=== PATIENT | female | born 1940 | race Caucasian/White ===

== ENCOUNTER → 2017-05-17 | Outpatient (CLI) | payer OTHER ==
--- NOTE | 2017-05-17 13:16 | DIAGNOSTIC IMAGING REPORT ---
LEFT KNEE MRI HISTORY: LEFT KNEE PAIN COMPARISON STUDY: Left knee 10/09/2016. TECHNIQUE: Multiplanar multisequence MRI of the left knee was performed according to standard department protocol without the use of contrast. FINDINGS: Menisci: Complex tear within the body and posterior horn of the medial meniscus. The lateral meniscus is intact. Ligaments: The ACL, PCL, MCL are intact. There is abnormal signal within the proximal LCL consistent with a partial tear. Extensor mechanism: The quadriceps tendon and patellar ligament are intact. Articular cartilage and bone: 11 x 11 mm area of full-thickness cartilage loss within the medial femoral condyle. There is extensive marrow edema within the medial femoral condyle. Best seen on sagittal images 6 there is a small 5 mm curvilinear focus of hypointense signal within the central weightbearing portion of the medial femoral condyle. This favors a nondisplaced subchondral microfracture. There is subchondral cystic change within the medial tibial plateau. Mild cartilage thinning within the medial tibial plateau. Tricompartmental osteophytes. There is near complete full-thickness cartilage loss within the patellofemoral joint with subchondral sclerosis and [id number] articulation. Joint effusion: Small. Soft tissues: Mild thickening and increased signal within the popliteus tendon consistent with a tendinopathy. IMPRESSION: 1. Complex tear involving the body and posterior horn of the medial meniscus. 2. Tricompartmental osteoarthritis as described above with a focal area of full-thickness cartilage loss within the medial femoral condyle and near complete full-thickness cartilage loss at the patellofemoral joint. 3. Suspect a 5 mm nondisplaced subchondral microfracture at the medial femoral condyle. 4. Partial LCL tear. 5. Popliteus tendinopathy. 6. Small joint effusion. Electronically signed by: Grey Bruno M.D. 05/17/2017 1:15 PM Dictated Date/Time: 05/17/2017 12:58 PM
== END | disposition home or self-care (01) ==
LOC: C.MRI 09:50
PROVIDERS: ATTEND Physical Medicine & Rehabilitation Sports Medicine
DX: M17.12 Unilateral primary osteoarthritis, left knee (principal); S83.242A Other tear of medial meniscus, current injury, left knee, initial encounter; S72.435A Nondisplaced fracture of medial condyle of left femur, initial encounter for closed fracture; S83.422A Sprain of lateral collateral ligament of left knee, initial encounter; X58.XXXA Exposure to other specified factors, initial encounter; M76.892 Other specified enthesopathies of left lower limb, excluding foot; M25.462 Effusion, left knee

== ENCOUNTER → 2017-05-22 | Outpatient (CLI) | payer OTHER | END | disposition home or self-care (01) | LOC: C.RDSM 11:22 | PROVIDERS: ATTEND Physical Medicine & Rehabilitation Sports Medicine | DX: M17.12 Unilateral primary osteoarthritis, left knee (principal); M25.562 Pain in left knee ==

== ENCOUNTER → 2017-06-19 | Outpatient (CLI) | payer OTHER ==
--- NOTE | 2017-06-19 09:16 | DIAGNOSTIC IMAGING REPORT ---
RENAL ULTRASOUND CLINICAL HISTORY: HEMATURIA . COMPARISON STUDY: None. TECHNIQUE: Sonography of the kidneys and the urinary bladder was performed. FINDINGS: The right kidney measures 10.2 x 4.4 x 3.9 cm and the left measures 11.4 x 5.8 x 5.3 cm. There is no hydronephrosis. No shadowing calculi are identified. A 1.3 cm anechoic right renal lesion is consistent with a cyst. Note is made of a 2.6 x 1.7 x 2 cm echogenic lesion which likely arises from the lower pole of the right kidney. Slight dilatation of the right renal pelvis is noted. The left ureteral jet was visualized. The right ureteral jet was not identified. IMPRESSION: 1. 2.6 cm echogenic lesion which arises from the lower pole of the right kidney and favors an angiomyolipoma. Renal cell carcinoma is considered less likely but could appear similar. A hematuria protocol CT is recommended. 2. No hydronephrosis. Mild dilatation of the right renal pelvis favors an extrarenal pelvis. Electronically signed by: aNdir Christine M.D. 06/19/2017 9:15 AM Dictated Date/Time: 06/19/2017 9:11 AM
--- NOTE | 2017-07-06 12:33 | CODING QUERY NO DIAGNOSIS ---
: 06/19/17 TREATMENT RENDERED WITHOUT A DIAGNOSIS To promote full compliance with coding requirements relating to patient care, physician participation is requested in all cases of mine expert uncertainty. Please assist us with providing a diagnosis/symptom for the test(s) below: A diagnosis/symptom was not documented on your Order. A valid diagnosis/symptom is required to bill all insurances. Please remember that we are unable to code a diagnosis of rule out, probable, possible, questionable, or suspected. Tests that require a diagnosis: DOS: 06/19/17 * US RENAL RETROPERITONEAL DIAGNOSIS: Provider Signature: Date: Thank you Shalini Walker [employer] Information Management Once completed, please kindly fax back to [phone] For questions please call [phone]
== END | disposition home or self-care (01) ==
LOC: C.ULTR 08:33
PROVIDERS: ATTEND Family Medicine
DX: R31.29 Other microscopic hematuria (principal); N28.9 Disorder of kidney and ureter, unspecified

== ENCOUNTER → 2017-08-10 | Outpatient (CLI) | payer OTHER ==
--- NOTE | 2017-08-10 13:38 | MAMMOGRAPHY REPORT ---
BILATERAL DIGITAL SCREENING MAMMOGRAM WITH CAD: 08/10/2017 CLINICAL HISTORY: Routine screening. Patient has no complaints. TECHNIQUE: Current study was also evaluated with a Computer Aided Detection (CAD) system. Bilateral CC and MLO views were obtained. COMPARISON: Comparison is made to exams dated: 08/08/2016 mammogram, 08/05/2015 mammogram, 08/03/2014 m ammogram, 07/28/2013 mammogram, 07/19/2012 mammogram, and 07/11/2012 mammogram - [facility]. BREAST COMPOSITION: The tissue of both breasts is heterogeneously dense, which may obscure small mas ses. FINDINGS: No suspicious masses, calcifications, or areas of architectural distortion are noted in ei ther breast. There has been no significant interval change compared to prior exams. Scattered bilater al benign-appearing calcifications are not significantly changed. IMPRESSION: ACR BI-RADS CATEGORY 2: BENIGN There is no mammographic evidence of malignancy. A 1 year screening mammogram is recommended. The pa tient will receive written notification of the results. Approximately 10% of breast cancers are not detected with mammography. A negative mammographic report should not delay biopsy if a clinically suggestive mass is present. Meliza Herrera M.D. /:08/10/2017 12:33:13 Biometric Fingerprinting Technician: Marlena NUNEZR, M, [facility] letter sent: Normal 1/2 BI-RADS Code: ACR BI-RADS Category 2: Benign
== END | disposition home or self-care (01) ==
LOC: C.MAMM 08:32
PROVIDERS: ATTEND Family Medicine
DX: Z12.31 Encounter for screening mammogram for malignant neoplasm of breast (principal)

== ENCOUNTER → 2017-10-30 | Outpatient (CLI) | payer OTHER ==
[2017-10-30 13:55] LABS: BASO % 0.4 %; BASO ABS # 0.03 K/uL (0-0.2); EOS % 2.7 %; EOS ABS # 0.22 K/uL (0-0.5); HEMATOCRIT 42.3 % (37-47); HEMOGLOBIN 14.3 g/dL (12.0-16.0); IG# 0.02 K/uL (0.00-0.02); LYMPH % 30.6 %; LYMPH ABS # 2.45 K/uL (1.2-3.4); MEAN CELL VOLUME 83.6 fL (80-100); MEAN CORPUSCULAR HEMOGLOBIN 28.3 pg (25-34); MEAN CORPUSCULAR HGB CONC 33.8 g/dl (32-36); MEAN PLATELET VOLUME 9.9 fL (7.4-10.4); MONO % 11.6 %; MONO ABS # 0.93 K/uL (0.11-0.59); NEUT % 54.5 %; NEUT ABS # 4.36 K/uL (1.4-6.5); PLATELET COUNT 226 K/uL (130-400); RED CELL DISTRIBUTION WIDTH CV 13.8 % (11.5-14.5); RED CELL DISTRIBUTION WIDTH SD 41.6 fL (36.4-46.3); WHITE BLOOD COUNT 8.01 K/uL (4.8-10.8)
[2017-10-30 14:01] LABS: ALBUMIN 4.1 gm/dl (3.4-5.0); ALT/SGPT 33 U/L (12-78); BLOOD UREA NITROGEN 20 mg/dl (7-18); CALCIUM 9.8 mg/dl (8.5-10.1); CARBON DIOXIDE 27 mmol/L (21-32); CREATININE 0.94 mg/dl (0.60-1.20); GLUCOSE 94 mg/dl (70-99); POTASSIUM 4.5 mmol/L (3.5-5.1); SODIUM 140 mmol/L (136-145)
[2017-10-30 14:05] LABS: INR 0.9 (0.9-1.1); PTT PATIENT 23.3 SECONDS (21.0-31.0)
[2017-10-30 14:17] LABS: ALKALINE PHOSPHATASE 71 U/L (45-117); AST/SGOT 21 U/L (15-37); TOTAL PROTEIN 7.3 gm/dl (6.4-8.2)
== END | disposition home or self-care (01) ==
LOC: C.LABSPEC 13:13
PROVIDERS: ATTEND Family Medicine
DX: Z01.812 Encounter for preprocedural laboratory examination (principal)

== ENCOUNTER → 2017-10-31 | Outpatient (CLI) | payer OTHER ==
--- NOTE | 2017-10-31 13:12 | Exercise Stress Test Report ---
Exercise Stress Test Report Exercise Stress Test Report Date of Service: 10/31/2017 Exercise Stress Test Report Indication: Abnormal EKG Patient exercised for 8 minutes using a standard Chris protocol She achieved 89 percent of her maximal predicted heart rate and 10 Mets of activity Baseline EKG was normal sinus rhythm During exercise was development of an incomplete right bundle branch block but no significant ST or T-wave changes during exercise or recovery No symptoms reported during the test Normal heart rate and blood pressure response to exercise Vo treadmill score: 8 (low risk) Impression: Normal exercise stress test without evidence of inducible ischemia
== END | disposition home or self-care (01) ==
LOC: C.CPL 10:45
PROVIDERS: ATTEND Family Medicine
DX: R94.31 Abnormal electrocardiogram [ECG] [EKG] (principal)

== ENCOUNTER 2018-09-10 05:03 | Inpatient (IN) ==
--- NOTE | 2018-08-23 10:13 | PAT Medication Instructions ---
Medication Instructions Date of Service August 23, 2018 Home Medications Azelastine Hydrochloride 1 spray BID [place] 3 4 cap PO DAILY ascorbic acid (vitamin C) 500 mg PO DAILY atenolol 25 mg PO QAM coenzyme Q10 [CoQ-10] 100 mg PO DAILY cyclosporine [Restasis] 1 drp OPHTHALMIC (EYE) Q12H fexofenadine-pseudoephedrine [Kati-D 24 Hour] 1 tab PO DAILY losartan 100 mg PO QPM lutein 20 mg PO DAILY multivitamin [Multiple Vitamins] 1 tab PO WK simvastatin 20 mg PO PM Continue as directed multivitamin [Multiple Vitamins] 1 tab PO WK (HOLD IF YOU TAKE DAY OF SURGERY ) STOP taking 2 weeks before surgery lutein 20 mg PO DAILY coenzyme Q10 [CoQ-10] 100 mg PO DAILY [place] 3 4 cap PO DAILY DO NOT take the morning of surgery cyclosporine [Restasis] 1 drp OPHTHALMIC (EYE) Q12H fexofenadine-pseudoephedrine [Kati-D 24 Hour] 1 tab PO DAILY ascorbic acid (vitamin C) 500 mg PO DAILY Azelastine Hydrochloride 1 spray BID Take morning of surgery With a small sip of water, OTHERWISE NOTHING TO EAT OR DRINK AFTER MIDNIGHT: atenolol 25 mg PO QAM Take evening before surgery simvastatin 20 mg PO PM losartan 100 mg PO QPM cyclosporine [Restasis] 1 drp OPHTHALMIC (EYE) Q12H Azelastine Hydrochloride 1 spray BID Other Notes If you have any questions please call us at [phone] or [phone] or [phone] or [phone]
--- NOTE | 2018-08-23 10:42 | Anesthesiology Consultation ---
Date of Service August 23, 2018 Assessment & Plan (1) Encounter for pre-operative examination: Chart Review Chart Review: Acceptable Risk for Surgery and Patient seen in Pre Admission Testing Consults Requested medical (Dr. Webb (saw on 08/15/18)) Note received from PCP stating that patient is medically cleared for surgery, but is to stop ASA one week prior to surgery. Teaching & Discussion Pre-Anesthesia Teaching/Discussion Notes: Instructed NPO after midnight before surgery, except medications with 15 cc of water. Medication instructions provided according to the PAT guidelines. History Surgery Operation Date: 09/10/18 10:00 Proposed Procedures p Left Total Knee Arthroplasty - Daniel Anguiano MD Height/Weight Height: 5 ft 6 in Weight: 74.7 kg Allergies Allergy/AdvReac Type Severity Reaction Status Date / Time codeine AdvReac Unknown Nausea Verified 08/16/18 09:00 Medications Home Medications Medication Instructions Recorded Confirmed Last Taken Azelastine Hydrochloride 1 spray BID 08/16/18 08/16/18 Unknown [place] 3 4 cap PO HS 08/16/18 08/23/18 Unknown ascorbic acid (vitamin C) [Vitamin 500 mg PO DAILY 08/16/18 08/16/18 Unknown C] atenolol 25 mg PO QAM 08/16/18 08/16/18 Unknown coenzyme Q10 [CoQ-10] 100 mg PO DAILY 08/16/18 08/16/18 Unknown cyclosporine [Restasis] 1 drp OPHTHALMIC (EYE) Q12H 08/16/18 08/16/18 Unknown fexofenadine-pseudoephedrine 1 tab PO DAILY 08/16/18 08/16/18 Unknown [Kati-D 24 Hour] losartan 100 mg PO QPM 08/16/18 08/16/18 Unknown lutein 20 mg PO DAILY 08/16/18 08/16/18 Unknown multivitamin [Multiple Vitamins] 1 tab PO WK 08/16/18 08/16/18 Unknown simvastatin 20 mg PO PM 08/16/18 08/16/18 Unknown Past Medical History Medical History Acid reflux OCCASSIONAL - DIETARY CONTROLLED HTN (hypertension) History of migraine Hyperlipidemia Menieres disease Sleep apnea BI PAP Past Family History Family History Grandmother Family history of breast cancer Father , at age 86 Osteoarthritis CHF (congestive heart failure) Mother Heart disease Past Surgical History Surgical History History of bilateral cataract extraction History of bunionectomy X2 History of colonoscopy History of hysterectomy History of surgical procedure on mouth TOOTH IMPLANT History of tonsillectomy Status post trigger finger release RIGHT HAND Past Anesthesia History No Hx of Anesthesia Complications and No Family Hx of Anesthesia Complications History of PONV No Motion Sickness Screening History of Motion Sickness: Yes (In childhood) Social History Smoking Status: Never smoker Do You Dip or Chew Tobacco: No Hx Alcohol Use: Yes Alcohol type: wine alcohol intake frequency: 0-2 drinks per day Hx Substance Use: No substance use type: does not use Exercise / Class Metabolic Activity II 4-5 Yardwork/Stairs/Walk up hill (Walks dog 3x per day. Yoga 2x per week. industrial trainer weekly. Able to climb FOS. Denies CP or SOB. ) Review of Systems Patient denies chest pain, shortness of breath, dyspnea on exertion, reflux ( controlled by diet), cough, wheezing, palpitations. +joint pain (knees, hands, back) Physical Exam Vital Signs BP: 131/79 P: 55 R: 20 T: 98.2 SPO2: 93% on RA (has on dark red gel nailpolish on) ENMT Thyromental Distance: < 3.5 Finger Breadths (3) Mallampati Class: I Neck normal visual inspection and trachea midline; neck extension not limited Respiratory normal respiratory effort Auscultation: lungs clear to auscultation bilaterally Cardiovascular Rate/Rhythm: regular rate and regular rhythm Heart Sounds: no murmur Vessels: no carotid bruit Neurologic moves all extremities Psychiatric Orientation: alert and oriented x 3 Testing Electrocardiogram Date: 08/15/18 Findings: + NSR @ (63) Slight inferior repolarization disturbance, consider ischemia, LV overload, or aspecific change Chest X-Ray Date: 08/23/18 Findings: + NAD FINDINGS: Cardiac mediastinal and hilar silhouettes are unremarkable. No pneumothorax, pleural effusion, focal airspace consolidation or overt pulmonary edema. Minimal subsegmental atelectasis/scarring of the lateral left lung base. Degenerative changes of the shoulders and spine. IMPRESSION: No acute process. Echocardiogram Date: 08/14/11 EF: 60-65% LV Function: normal RWMA: + none Other Findings: + diastolic dysfunction (Class I) Valvular Disease: + no significant valvular disease and + MR (Trace MR) Mild TR. Stress Test Date: 10/31/17 Type: exercise Patient exercised for 8 minutes and achieved 89 percent of her MPHR and 10 METS of activity. Baseline EKG was normal sinus rhythm. During exercise was development of an incomplete RBBB but no significant ST or T-wave changes during exercise or recovery. DONE DUE TO ABNORMAL EKG Laboratory Results 08/23/18 11:02 08/23/18 11:02 Blood Type A Positive 08/23/18 11:02 Antibody Screen NEGATIVE 08/23/18 11:02 PT 10.0 Seconds (9.0-12.0) 08/23/18 11:02 INR 1.0 (0.9-1.1) 08/23/18 11:02 APTT 23.3 Seconds (21.0-31.0) 08/23/18 11:02
--- NOTE | 2018-08-23 11:32 | XRay Report ---
XR chest Pre-admission PA/Lat HISTORY: 77 years-old Female pat preoperative exam. No acute chest complaints. COMPARISON: CT abdomen and pelvis 06/28/2017 TECHNIQUE: PA and lateral views of the chest FINDINGS: Cardiac mediastinal and hilar silhouettes are unremarkable. No pneumothorax, pleural effusion, focal airspace consolidation or overt pulmonary edema. Minimal subsegmental atelectasis/scarring of the lat eral left lung base. Degenerative changes of the shoulders and spine. IMPRESSION: No acute process. The above report was generated using voice recognition software. It may contain grammatical, syntax o r spelling errors. Electronically signed by: Harjit Brandon M.D. 08/23/2018 11:31 AM
[2018-08-23 12:39] LABS: Basophils # (auto) 0.01 K/uL (0-0.2); Basophils % (auto) 0.1 %; Hematocrit (blood only) 38.9 % (37-47); Hemoglobin 12.8 g/dL (12.0-16.0); Immature Granulocytes # (auto) 0.01 K/uL (0.00-0.02); Immature Granulocytes % (auto) 0.1 %; Lymphocytes % (auto) 31.1 %; Mean Corpuscular Hgb Conc 32.9 g/dL (32-36); Mean Corpuscular Volume 83.3 fL (80-100); Mean Platelet Volume 9.6 fL (7.4-10.4); Monocytes # (auto) 0.58 K/uL (0.11-0.59); Monocytes % (auto) 8.6 %; Neutrophils # (auto) 3.85 K/uL (1.4-6.5); Neutrophils % (auto) 57.1 %; Platelet Count 206 K/uL (130-400); RDW Coefficient of Variation 14.1 % (11.5-14.5); RDW Standard Deviation 42.5 fL (36.4-46.3); Red Blood Count 4.67 M/uL (4.2-5.4); White Blood Count 6.75 K/uL (4.8-10.8)
[2018-08-23 12:55] LABS: BUN Creatinine Ratio 21.1 (10-20); Calcium 9.2 mg/dl (8.5-10.1); Creatinine Clr Calc Pharmacy 50.7 ml/min; Est GFR (African American) 64.6; Est GFR (Non-African American) 55.7; Potassium 4.2 mmol/L (3.5-5.1)
[2018-08-23 13:02] LABS: Partial Thromboplastin Ratio 0.9; Partial Thromboplastin Time 23.3 Seconds (21.0-31.0)
--- NOTE | 2018-08-23 15:47 | History & Physical Report ---
Date of Service August 23, 2018 Assessment & Plan (1) Degenerative joint disease of knee: Patient is scheduled for an elective left total knee arthroplasty by Dr. Anguiano on September 10, 2018. Risks and complications of surgery were explained to the patient and include but are not limited to infection, pain, bleeding, scarring, nerve and blood vessel damage, wound problems, weakness, stiffness, incomplete relief of symptoms, hardware failure, loosening, wear, blood clots, embolisms, heart attack, stroke and . All questions were answered and informed consent was obtained by Dr. Anguiano. She will have preadmission testing later today in which we will obtain a preoperative CBC, PTT , PT, BMP, chest x-ray and medical clearance from her family physician Dr. Webb. We will use Lovenox 30 mg twice a day 2 weeks after surgery for DVT prophylaxis. She would like to go home after surgery with potentially in home health or outpatient physical therapy. She was given a prescription for a walker to use after surgery. She will follow up with Dr. Anguiano is scheduled approximate 2 weeks after surgery. All questions were answered and she knows to call with any further problems, questions or concerns. Present on Admission?: Yes History of Present Illness Chief Complaint: Left knee pain Primary Care Provider: Fanny Webb Patient is a pleasant 77-year-old female who is here today for preoperative history and physical. She is scheduled to have an elective left total knee arthroplasty done by Dr. Anguiano at the [facility] on September 10, 2018. She complains of left knee pain that has progressively worsened over the last few months. She states that most of her knee pain is on the inside aspect of the knee. Her pain is increased with activity and weightbearing. She does have decreasing activities of daily living due to pain in her left knee. She has increased pain with range of motion as well as limited motion due to pain in her left knee. She states that she is unable to bend it quite as far as she used to be able to do. She denies any joint effusions currently. Aggravating activities include walking, going up and down steps. She also occasionally gets rest and night pain. She has not needed to use an assistive device but does have to take occasional breaks to rest. Prior treatments include nonsteroidal anti-inflammatory medications, corticosteroid injections and viscosupplementation. She really is not getting any long lasting relief from any of the conservative things that she is trying. Radiology images show tricompartmental arthritis of her left knee. Due to her failure of conservative treatment, she wishes to proceed with elective left total knee arthroplasty. Allergies Allergy/AdvReac Type Severity Reaction Status Date / Time codeine AdvReac Unknown Nausea Verified 08/16/18 09:00 Home Medications Home Medications Medication Instructions Recorded Confirmed Type Azelastine Hydrochloride 1 spray BID 08/16/18 08/16/18 History [place] 3 4 cap PO HS 08/16/18 08/23/18 History ascorbic acid (vitamin C) [Vitamin 500 mg PO DAILY 08/16/18 08/16/18 History C] atenolol 25 mg PO QAM 08/16/18 08/16/18 History coenzyme Q10 [CoQ-10] 100 mg PO DAILY 08/16/18 08/16/18 History cyclosporine [Restasis] 1 drp OPHTHALMIC (EYE) Q12H 08/16/18 08/16/18 History fexofenadine-pseudoephedrine 1 tab PO DAILY 08/16/18 08/16/18 History [Kati-D 24 Hour] losartan 100 mg PO QPM 08/16/18 08/16/18 History lutein 20 mg PO DAILY 08/16/18 08/16/18 History multivitamin [Multiple Vitamins] 1 tab PO WK 08/16/18 08/16/18 History simvastatin 20 mg PO PM 08/16/18 08/16/18 History Past Med/Surg History Medical History Acid reflux OCCASSIONAL - DIETARY CONTROLLED HTN (hypertension) History of migraine Hyperlipidemia Menieres disease Sleep apnea BI PAP Surgical History History of bilateral cataract extraction History of bunionectomy X2 History of colonoscopy History of hysterectomy History of surgical procedure on mouth TOOTH IMPLANT History of tonsillectomy Status post trigger finger release RIGHT HAND Family History Grandmother Family history of breast cancer Father , at age 86 Osteoarthritis CHF (congestive heart failure) Mother Heart disease Social History Current Living Situation: Spouse Other Information That Helps Us Care for You: No Feels Safe at Home: Yes Smoking Status: Never smoker Do You Dip or Chew Tobacco: No Hx Alcohol Use: Yes Alcohol type: wine Alcohol Intake Frequency: 0-2 drinks per day Hx Substance Use: No Beliefs That Will Affect Care: None Preferred Language: Slovak Communication Ability: Effective Adapted Physical Education Aide Required: No Review of Systems Constitutional: no fever, no chills, no sweats, no fatigue, no weakness, no weight loss and no weight gain Eyes: no eye pain and no itchy eyes Ear, Nose, Mouth, Throat: + hearing loss; no ear pain, no ear discharge, no ear trauma and no tinnitus hearing aids Respiratory: no cough, no chest congestion, no dyspnea on exertion and no pain on inspiration Sleep apnea - Bi-Pap Cardiovascular: no chest pain, no chest pain at rest, no chest pain with activity, no dyspnea, no dyspnea at rest, no palpitations, no lightheadedness, no syncope, no edema and no calf pain Gastrointestinal: no abdominal pain, no belching, no heartburn, no nausea, no vomiting, no pain with swallowing, no change in stools, no constipation and no diarrhea/loose stools Genitourinary (Female): no dysuria, no difficulty urinating, no urinary urgency and no urinary incontinence Musculoskeletal: + joint pain, + stiffness and + limited range of motion (left knee); no back pain, no radicular pain, no swelling, no muscle weakness, no muscle atrophy and no body aches Gets "adjusted" by her chiropractor biweekly Integumentary: no rash, no lesions, no non-healing lesions, no skin ulcer, no erythema, no dry skin and no pruritus Neurologic: + gait abnormality; no falls, no tingling, no numbness, no paresthesia, no dizziness, no confusion and no memory loss Endocrine: no fatigue Hematologic / Lymphatic: no easy bleeding, no easy bruising and no coagulopathy Physical Exam 2 Physical Exam: Height 5 feet 6 inches, weight 155 pounds Constitutional: WD/WN, vitals as above Eyes: PERRL, conjunctivae normal, anicteric sclerae ENMT: external ear and nose normal, oropharynx normal Throat: uvula midline Good dentition Neck: trachea midline, no thyromegaly no neck crepitus Thyroid: normal thyroid Respiratory: normal respiratory effort, lungs clear to auscultation Auscultation: no crackles, no rales, no rhonchi and no wheezes Cardiovascular: RRR, no murmur, no edema Heart Sounds: normal S1 and normal S2 Palpation: normal PMI Vessels: normal peripheral pulses Extremities: normal capillary refill; no calf tenderness and no pedal edema Chest (Breasts): Chest: normal inspection of chest Gastrointestinal (Abdomen): normal bowel sounds, soft, nontender, no hepatosplenomegaly Inspection/Auscultation: abdomen not distended Percussion/Palpation: abdomen soft Musculoskeletal: Left knee: Grade 0/3/120. You joint line tenderness without deformity. 1+ dorsalis pedis. No effusion. Strength 5/5 with otherwise normal distal vascular function. Cruciates and collaterals are intact. Painless movement of the left hip. No significant atrophy of her muscles. She ambulance with a slight antalgic with no assistive device. Skin: no rashes, warm and dry Neurologic: deep tendon reflexes 2+ bilaterally Psychiatric: A+Ox3, euthymic affect Speech: normal rate/rhythm/volume of speech Results & Data Laboratory Results 08/23/18 08/23/18 08/23/18 Range/Units 11:02 11:02 11:02 WBC (4.8-10.8) K/uL RBC (4.2-5.4) M/uL Hgb (12.0-16.0) g/dL Hct (37-47) % MCV (80-100) fL MCH (25-34) pg MCHC (32-36) g/dL RDW Std Deviation (36.4-46.3) fL RDW Coeff of Osvaldo (11.5-14.5) % Plt Count (130-400) K/uL MPV (7.4-10.4) fL Immature Gran % (Auto) % Neut % (Auto) % Lymph % (Auto) % [place] % (Auto) % Eos % (Auto) % Baso % (Auto) % Immature Gran # (Auto) (0.00-0.02) K/uL Neut # (Auto) (1.4-6.5) K/uL Lymph # (Auto) (1.2-3.4) K/uL [place] # (Auto) (0.11-0.59) K/uL Eos # (Auto) (0-0.5) K/uL Baso # (Auto) (0-0.2) K/uL PT 10.0 (9.0-12.0) Seconds INR 1.0 (0.9-1.1) APTT 23.3 (21.0-31.0) Seconds PTT Ratio 0.9 Sodium 141 (136-145) mmol/L Potassium 4.2 (3.5-5.1) mmol/L Chloride 111 H (98-107) mmol/L Carbon Dioxide 22 (21-32) mmol/L Anion Gap 8.0 (3-11) BUN 21 H (7-18) mg/dl Creatinine 0.99 (0.6-1.2) mg/dl Est Cr Clr Drug Dosing 50.7 ml/min Est GFR ( Amer) 64.6 Est GFR (Non-Af Amer) 55.7 BUN/Creatinine Ratio 21.1 H (10-20) Glucose 107 H (70-99) mg/dl Calcium 9.2 (8.5-10.1) mg/dl Blood Type A Positive Antibody Screen NEGATIVE 08/23/18 Range/Units 11:02 WBC 6.75 (4.8-10.8) K/uL RBC 4.67 (4.2-5.4) M/uL Hgb 12.8 (12.0-16.0) g/dL Hct 38.9 (37-47) % MCV 83.3 (80-100) fL MCH 27.4 (25-34) pg MCHC 32.9 (32-36) g/dL RDW Std Deviation 42.5 (36.4-46.3) fL RDW Coeff of [place] 14.1 (11.5-14.5) % Plt Count 206 (130-400) K/uL MPV 9.6 (7.4-10.4) fL Immature Gran % (Auto) 0.1 % Neut % (Auto) 57.1 % Lymph % (Auto) 31.1 % [place] % (Auto) 8.6 % Eos % (Auto) 3.0 % Baso % (Auto) 0.1 % Immature Gran # (Auto) 0.01 (0.00-0.02) K/uL Neut # (Auto) 3.85 (1.4-6.5) K/uL Lymph # (Auto) 2.10 (1.2-3.4) K/uL [place] # (Auto) 0.58 (0.11-0.59) K/uL Eos # (Auto) 0.20 (0-0.5) K/uL Baso # (Auto) 0.01 (0-0.2) K/uL PT (9.0-12.0) Seconds INR (0.9-1.1) APTT (21.0-31.0) Seconds PTT Ratio Sodium (136-145) mmol/L Potassium (3.5-5.1) mmol/L Chloride (98-107) mmol/L Carbon Dioxide (21-32) mmol/L Anion Gap (3-11) BUN (7-18) mg/dl Creatinine (0.6-1.2) mg/dl Est Cr Clr Drug Dosing ml/min Est GFR ( Amer) Est GFR (Non-Af Amer) BUN/Creatinine Ratio (10-20) Glucose (70-99) mg/dl Calcium (8.5-10.1) mg/dl Blood Type Antibody Screen Diagnostic Findings X-rays of bilateral knees:5 use of both knees obtained and reviewed demonstrate progression of medial compartment osteophyte arthritis of the left knee to near [id number]. There is bilateral [id number] patellofemoral disease and some mild medial compartment change on the right knee. No fracture, bone or soft tissue lesions. XR chest Pre-admission PA/Lat HISTORY: 77 years-old Female pat preoperative exam. No acute chest complaints. COMPARISON: CT abdomen and pelvis 06/28/2017 TECHNIQUE: PA and lateral views of the chest FINDINGS: Cardiac mediastinal and hilar silhouettes are unremarkable. No pneumothorax, pleural effusion, focal airspace consolidation or overt pulmonary edema. Minimal subsegmental atelectasis/scarring of the lateral left lung base. Degenerative changes of the shoulders and spine. IMPRESSION: No acute process.
[2018-09-10] MEDS ORDERED: TRANEXAMIC ACID 1,000 MG **IV Pre-op IV SCH (06:00)
[2018-09-10] MEDS ORDERED: CEFAZOLIN 1000MG 1,000 MG/7.5 ML SYR IV SCH (06:00)
[2018-09-10] MEDS ORDERED: GABAPENTIN 300 MG PO SCH (06:00)
[2018-09-10] MEDS ORDERED: LR 15ML/HR IV SCH (06:00)
[2018-09-10] MEDS ORDERED: ROPIVACAINE 0.5% HCL/PF 150 MG, BUPIVACAINE 0.5% MPF 30 ML, EPINEPHrine 0.15 MG, Ketoro... INFIL SCH (06:00)
[2018-09-10] MEDS ORDERED: TRAMADOL HCL 50 MG TABLET PO SCH (06:00)
[2018-09-10] MEDS ORDERED: FAMOTIDINE 20 MG TAB PO SCH (06:00)
[2018-09-10] MEDS ORDERED: OXYCODONE HCL 10 MG TABCR (OXYCONTIN) PO SCH (06:00)
[2018-09-10] MEDS ORDERED: cloNIDine HCL 0.1 MG/24 HR TRANSDERM SYS TD SCH (06:00)
[2018-09-10] MEDS ORDERED: dexAMETHasone 4 MG TAB PO SCH (06:00)
[2018-09-10] MEDS ORDERED: METOCLOPRAMIDE HCL 10 MG TABLET PO SCH (06:00)
[2018-09-10] MEDS ORDERED: ACETAMINOPHEN 500 MG TAB PO SCH (06:00)
[2018-09-10] MEDS ORDERED: CeleBREX 200 MG CAP PO SCH (06:00)
[2018-09-10] MEDS: LR 500ML BOLUS, THEN 15ML/HR IV SCH ×3 (06:11→12:18)
[2018-09-10] MEDS ORDERED: BUPIVACAINE 0.5 % 5 MG/1 ML PF 10ML VIAL ONE (06:22)
[2018-09-10] MEDS ORDERED: ROPIVACAINE 0.5% 5 MG/ML 30 ML VIAL ONE (06:23)
[2018-09-10] MEDS ORDERED: TRANEXAMIC ACID 1,000 MG **IV Intra-op IV SCH (06:30)
[2018-09-10] MEDS ORDERED: ORTHO JOINT ANESTHETIC ONE (06:39)
[2018-09-10] MEDS ORDERED: SODIUM CHLORIDE 0.9% PF 50 ML VIAL ONE (06:39)
[2018-09-10] MEDS ORDERED: POVIDONE-IODINE OP SOLN 30 ML BTL ONE (06:39)
[2018-09-10] MEDS ORDERED: BACITRACIN INJ 50,000 UNIT VIAL ONE (06:39)
[2018-09-10] MEDS ORDERED: PROPOFOL IV EMULSION 10 MG/ML 20 ML VIAL IV ONE ×4 (06:41→09:28)
[2018-09-10] MEDS ORDERED: MIDAZOLAM HCL 1 MG/ML 2ML VIAL ONE ×3 (06:41→08:56)
[2018-09-10] MEDS ORDERED: LIDOCAINE HCL 2% 2 ML VIAL/AMP(20MG/ML) INFIL ONE (06:41)
[2018-09-10] MEDS ORDERED: fentaNYL citrate 100 MCG/2 ML VIAL ONE (06:41)
--- NOTE | 2018-09-10 06:45 | History & Physical Bridge Note ---
Date of Service September 10, 2018 History & Physical Bridge Note I have examined the patient, reviewed the History & Physical and in the interval since the performance of the History & Physical I have noted the following changes of clinical significance: no changes noted
[2018-09-10] MEDS: CHECK CLONIDINE PATCH PLACEMENT SCH ×3 (06:51→16:14)
[2018-09-10] MEDS ORDERED: ATROPINE SULFATE 0.1 MG/ML 10ML SYR IV PRN (07:13)
[2018-09-10] MEDS ORDERED: HYDROmorphone INJ 2 MG/ML SYR/VIAL IV PRN (07:13)
[2018-09-10] MEDS ORDERED: ePHEDrine sulfate 50 MG/ML AMP IV PRN (07:13)
[2018-09-10] MEDS ORDERED: CEFAZOLIN 250 MG/ML 1 GM VIAL ONE (07:19)
[2018-09-10] MEDS ORDERED: ePHEDrine sulfate 50 MG/ML SYR ONE (07:58)
--- NOTE | 2018-09-10 10:21 | Operative Report ---
Post Operative Report Pre & Post Diagnosis Operation Date: 09/10/18 07:00 Pre-Op Diagnosis: Left Knee Tricompartmental Arthritis Post-Op Diagnosis: Left Knee Tricompartmental Arthritis Procedure Operation Date: 09/10/18 07:00 Actual Procedures p Left Total Knee Arthroplasty(Left) - Daniel Anguiano MD Surgeon Daniel Anguiano MD Staff Scientist flaco Olivo Estimated Blood Loss 10 Findings Consistent with Post-Op Diagnosis Specimens Resected bone and soft tissue Anesthesia Type MAC Spinal Regional Disposition Accompanied Patient To Recovery: No Disposition: Recovery Room Indications The patient is a 77-year-old female with end-stage osteoarthritis left knee medial and patellofemoral compartments. This is been refractory to nonsurgical methods of management after discussion her treatment options risks and benefits she elected to proceed with surgery Description of Procedure Informed consent obtained. Patient identified. She identified the operative site as the left knee. I marked with my initials. A preop surgical timeout performed. Preop dose of IV antibiotics given. TXA was given preoperatively and upon deflation of the tourniquet. Examination revealed range of motion 0/3/ 125 with no significant effusion or deformity. The cruciates and collateral ligaments were intact. She was positioned supine on the OR table with a bump under the left hip and a tourniquet on the left thigh pad. A padded post was used under the calf. Leg was prepped and draped in the usual sterile fashion. DVT prophylaxis intraoperatively with foot pumps. Postoperatively early mobility and Lovenox. The leg was exsanguinated with the Esmarch. Tourniquet inflated to 275 mmHg. A midline incision was utilized followed by medial parapatellar arthrotomy the patellofemoral joint was markedly arthritic with significant lateral wear of the patella. There were osteophytes along the patella and lateral femur which were removed. The medial meniscus was partially deficient. There were bone-on- bone changes 1-1/2 cm to 2 cm in diameter in the medial compartment both sides. The cruciate ligaments were resected and the menisci were resected. Lateral compartment looked relatively normal. A medial release was performed. The retropatellar fat pad was resected. The synovial reflection in the lateral gutter was released. The patella was slightly difficult to reg and I went ahead and put a pin into the tubercle to prevent avulsion. Soft tissue on the anterior aspect the distal femur was resected. The tibia was then subluxated and a energy efficiency engineer hole was made just in front of the tibial spines and between them. The intramedullary alignment teena was inserted and the guide was aligned to resect 10 off of the lateral side which corresponded to 4 mm medially. The patellar tendon was in the way and was protected. The tibial tubercle appeared to be fairly lateralized. It was also noted that there was a fair amount of internal femoral rotation which was noted. The extra medullary alignment teena was utilized. The block was not optimally aligned and I went ahead and repeated the entire process realigning more lateral over the tibial tubercle. The slope was parallel and the axis was bisecting the ankle joint in line with the second ray. 0 degree block was utilized and the cut was made. I later after assessing the extension gap and finding it to be tight came back and resected 2 more millimeters off of the tibia. A energy efficiency engineer hole was made into the distal femur and the intramedullary alignment teena was inserted. The guide was set at 12 degrees thickness cut 7 degree valgus left knee according to preoperative templating. This cut was made. The the gap was 8 and therefore went back and resected 2 more off the tibia which should give us a symmetric 10 mm extension gap. The epicondylar axis was marked out. The sizing guide was applied and sized to a 2.5. The anterior down cutting block was applied. The right the the flexion gap was rectangular. Collateral ligaments were protected and the cuts were made. The box cut was made after applying the guide and lateralizing it. Tibia sized to a 2.5. Posterior osteophytes were removed particularly lateral. The flexion gap was a symmetric 10. The tibia was prepared with the keel and punch and trial components were inserted. There is a slight bit springiness in extension. Trace MCL and LCL laxity in mid position knee was stable in full extension and flexion was easy with good patellar tracking. The patella was measured to be 18 mm in thickness with significant lateral wear. The guide was set to preserve 13 mm of bone and the cut was made. Most of the medial bone was removed with only a skim cut lateral. I used a 35mm patella which was 8 mm thick aligned the paddle appropriately with the patella being distal lysed and medialized. The alignment was assessed with the knee in slight flexion and the patella returned to its anatomic position. The lug holes were drilled. The residual patellar thickness was 12 mm. At the conclusion the operation there was a the composite patellar thickness was 19 mm. The canals were plugged. Orth O joint mix injected in the back of the knee. Copious pulsatile lavage was performed and the bone surfaces were dried. 2 bags of Simplex P cement were mixed and while in a doughy state the femur tibia and patella were cemented in place the knee was held in full extension with a clamp on the patella until the cement hardened. The tourniquet was then let down after 125 minutes of inflation. There was minimal bleeding and meticulous hemostasis was obtained with electrocautery. Anita assisted flexion with the extensor mechanism closed was 125 degrees. The knee was easily fully straight with neutral alignment trace MCL and trace to 1+ LCL laxity in mid position. Knee stable in full extension. The final polyethylene for the tibia was inserted. The back of the knee was inspected for cement and removed as encountered. Irrigation and Betadine lavage were performed. Extensor mechanism was closed with interrupted #2 FiberWire above the equator of the patella and running and interrupted #1 Vicryl below. The skin was closed in layers with 0 and 2-0 Vicryl and ghulam on the skin. A soft sterile dressing was applied along with a full-length Reginald wrap and knee immobilizer. There was a small globule of cement that was underneath the patellar clamp superiorly. This was below the shoulder of the patellar component. Medially it overhang down to the soft tissues and I removed it but laterally there was about 1 cm that was affixed into the bone. I gently tried to remove it but could not and therefore elected to preserve it. It was only about 2 mm in thickness and about a centimeter long below the shoulder of the patella superior and lateral. She was awakened from anesthesia without difficulty and taken to the recovery room in stable condition. There were no complications. Blood loss is estimated to be 10 cc. Counts were correct specimens included bone and soft tissue. She will be rehabilitated according to total knee protocol. She can weight- bear as tolerated and range of motion as tolerated. Components inserted with a J[employer]J PFC Sigma rotating platform knee size 10 rotating platform polyethylene spacer 2.5 posterior stabilized left femur and a 2.5 mobile bearing keeled tibial tray. A 35 mm 3 peg oval dome patella. The rotation of the tibial component was set. The tibial component was lateralized to the articular margin margin as well as the femoral component. I attest to the content of the Intraoperative Record and any orders documented therein. Any exceptions are noted below.
--- NOTE | 2018-09-10 10:52 | Operative Report ---
Post Operative Report Pre & Post Diagnosis Operation Date: 09/10/18 07:00 Pre-Op Diagnosis: Left Knee Tricompartmental Arthritis Post-Op Diagnosis: Left Knee Tricompartmental Arthritis Procedure Operation Date: 09/10/18 07:00 Actual Procedures p Left Total Knee Arthroplasty(Left) - Daniel Anguiano MD Surgeon Daniel Anguiano M.D. Mandrel Maker Erica Carrillo PA-C, flaco Dominguez APPLICATIONS SUPPORT ANALYST Student Estimated Blood Loss 10 Findings Consistent with Post-Op Diagnosis Specimens bone and soft tissue Anesthesia Type Spinal MAC Complications none Disposition Accompanied Patient To Recovery: No Disposition: Recovery Room Indications Patient is a 78-year-old female who was seen and evaluated as an outpatient for progressively worsening left knee pain. She is failed conservative treatment which is consisted of nonsteroidal anti-inflammatory medications, corticosteroid injections and Visco supplementation. She has pain on a daily basis which affects her activities of daily living and quality of life. She uses a cane occasionally to assist with ambulation. She has elected to proceed with a left total knee arthroplasty. Risks and complications were discussed and informed consent was obtained. Description of Procedure Patient was taken to the operating room, given spinal anesthesia and a peripheral nerve block. Timeout was performed. She was given 2 g of IV Ancef for surgical prophylaxis. She was prepped and draped in routine sterile fashion. I was present during the entire case, please see Dr. Anguiano's operative report for further detail. Patient was awakened and transferred to the recovery room in stable condition.
--- NOTE | 2018-09-10 11:07 | XRay Report ---
XR knee LT 2V routine CLINICAL HISTORY: Degenerative arthritis. Postop study. COMPARISON: 07/02/2018 DISCUSSION: There are postsurgical changes of a total left knee arthroplasty and patellar resurfacing . The femoral and tibial components appear well seated. There are no acute fractures. There is air pr esent within the soft tissues consistent with recent surgery. There are overlying skin ghulam. IMPRESSION: Postsurgical changes of a total left knee arthroplasty. Electronically signed by: Srinivasa Landrum M.D. 09/10/2018 11:05 AM
--- NOTE | 2018-09-10 11:22 | Anesthesiology Progress Note ---
Date of Service September 10, 2018 Anesthesia Post Procedure Vital Signs Vital Signs: Temp Pulse Pulse Resp BP Pulse Ox 09/10/18 11:05 80 20 150/94 H 95 09/10/18 10:55 64 14 99 09/10/18 10:45 60 18 147/82 H 98 09/10/18 10:36 36.4 C L 63 11 L 141/70 H 99 09/10/18 06:08 36.8 C 57 L 20 155/79 H 97 Notes Mental Status: alert / awake / arousable Patient Amnestic to Procedure: Yes Nausea / Vomiting: adequately controlled Pain: adequately controlled Airway Patency, RR, SpO2: stable & adequate BP & HR: stable & adequate Hydration State: stable & adequate Anesthetic Complications: no major complications apparent and Pt Satisfied with anesthetic care
[2018-09-10] MEDS ORDERED: ACETAMINOPHEN 325 MG TAB PO PRN (11:25)
[2018-09-10] MEDS ORDERED: METOCLOPRAMIDE HCL INJ 5 MG/ML 2 ML VIAL IV PRN (11:25)
[2018-09-10] MEDS ORDERED: KETOROLAC TROMETHAMINE 15 MG/ML VIAL IV PRN (11:25)
[2018-09-10] MEDS ORDERED: DiphenhydrAMINE HCL 50 MG/ML VIAL IV PRN (11:25)
[2018-09-10] MEDS ORDERED: NON-FORMULARY MEDICATION (Cyclosporine [Restasis] 1 DROPS) OP SCH (11:25)
[2018-09-10] MEDS ORDERED: ONDANSETRON INJ 2 MG/ML 2 ML VIAL IV PRN (11:25)
[2018-09-10] MEDS ORDERED: MAGNESIUM HYDROXIDE SUSP 30 ML UDC PO PRN (11:25)
[2018-09-10] MEDS ORDERED: MoRPHine SULFATE 2 MG/ML CARP IV PRN (11:25)
[2018-09-10] MEDS ORDERED: OXYCODONE HCL IR 5 MG TAB (IMMEDIATE RELEASE) PO PRN (11:25)
[2018-09-10] MEDS: SODIUM CHLORIDE 0.9% 1000ML 1,000 ML IV SCH ×2 (14:10→23:20)
--- NOTE | 2018-09-10 14:52 | Progress Note ---
DATE: 09/10/2018 SUBJECTIVE: She is sleeping, but easily arousable and responds appropriately to questions. She is getting some feeling back in her legs and has no pain. She is slightly nauseated. OBJECTIVE: VITAL SIGNS: Blood pressure approximately 150/80, pulse 55. She is afebrile. MUSCULOSKELETAL: Her dressing is clean and dry. Dorsalis pedis is 1+. Foot warm. She has diminished sensation in both feet, but has more feeling in the right foot than the left. She can lift her right leg, but cannot lift her left leg. She can faintly flex and extend the toes on the left foot, but cannot plantar flex or dorsiflex her ankle. Radiographs show good positioning of the components without evidence of complication. There is some rotation on both films particularly the AP view. IMPRESSION: Left total knee arthroplasty. PLAN: We talked about pain management. Surgical findings discussed. Plan is for routine post-surgical management. Diannanox will begin tonight. We will monitor her blood pressure. Routine postop antibiotics and PT.
[2018-09-10] MEDS: ACETAMINOPHEN 500 MG TAB PO SCH ×2 (15:40→20:45)
[2018-09-10] MEDS: CEFAZOLIN 1000MG 1,000 MG/7.5 ML SYR IV SCH ×2 (16:10→23:20)
[2018-09-10] MEDS ORDERED: TRANEXAMIC ACID 1,000 MG in 0.9 % SODIUM CHLORIDE 100 ML IV SCH (17:00)
[2018-09-10] MEDS: SIMVASTATIN 20 MG TAB PO SCH (20:44)
[2018-09-10] MEDS: DOCUSATE SODIUM 100 MG CAP PO SCH (20:44)
[2018-09-10] MEDS: AZELASTINE 137 MCG NAE SCH (20:45)
[2018-09-10] MEDS: LOSARTAN POTASSIUM 50 MG TAB PO SCH (20:45)
[2018-09-10] MEDS: CYCLOSPORINE OP SCH (20:45)
[2018-09-10] MEDS: ENOXAPARIN INJ 30 MG/0.3 ML SYR SQ SCH (20:48)
[2018-09-10] MEDS ORDERED: AZELASTINE HYDROCHLORIDE INTNAS SCH (21:00)
[2018-09-10] MEDS ORDERED: OMEGA PO SCH (21:00)
[2018-09-11] MEDS: CHECK CLONIDINE PATCH PLACEMENT SCH ×4 (01:17→23:30)
[2018-09-11] MEDS: ACETAMINOPHEN 500 MG TAB PO SCH ×3 (05:49→21:10)
[2018-09-11 06:37] LABS: Hematocrit (blood only) 29.2 % (37-47); Hemoglobin 9.6 g/dL (12.0-16.0); Mean Corpuscular Hgb Conc 32.9 g/dL (32-36); Mean Corpuscular Volume 83.9 fL (80-100); Platelet Count 147 K/uL (130-400); RDW Coefficient of Variation 14.4 % (11.5-14.5); RDW Standard Deviation 44.1 fL (36.4-46.3); Red Blood Count 3.48 M/uL (4.2-5.4); White Blood Count 10.95 K/uL (4.8-10.8)
[2018-09-11 07:05] LABS: BUN Creatinine Ratio 23.3 (10-20); Calcium 8.2 mg/dl (8.5-10.1); Creatinine Clr Calc Pharmacy 52.1 ml/min; Est GFR (African American) 67.4; Est GFR (Non-African American) 58.2; Potassium 4.3 mmol/L (3.5-5.1)
[2018-09-11] MEDS ORDERED: FEXOFENADINE PSEUDOEPHEDRINE PO SCH (09:00)
[2018-09-11] MEDS ORDERED: NON-FORMULARY MEDICATION (Lutein [Lutein] 20 MG) PO SCH (09:00)
[2018-09-11] MEDS ORDERED: MULTIVITAMIN TAB PO SCH (09:00)
[2018-09-11] MEDS ORDERED: NON-FORMULARY MEDICATION (Coenzyme Q10 [Coq-10] 100 MG) PO SCH (09:00)
[2018-09-11] MEDS: PANTOprazole 40 MG TAB PO SCH (09:22)
[2018-09-11] MEDS: ATENOLOL 25 MG TABLET PO SCH (09:22)
[2018-09-11] MEDS: DOCUSATE SODIUM 100 MG CAP PO SCH ×2 (09:22→21:10)
[2018-09-11] MEDS: AZELASTINE 137 MCG NAE SCH ×2 (09:23→21:11)
[2018-09-11] MEDS: CYCLOSPORINE OP SCH ×2 (09:23→21:11)
[2018-09-11] MEDS: TRAMADOL HCL 50 MG TABLET PO PRN ×3 (09:24→21:18)
[2018-09-11] MEDS: ENOXAPARIN INJ 30 MG/0.3 ML SYR SQ SCH ×2 (09:25→21:10)
--- NOTE | 2018-09-11 09:25 | Orthopedic Progress Note ---
Date of Service September 11, 2018 Assessment & Plan (1) Degenerative joint disease of knee: Postop day 1 left total knee arthroplasty PT/OT today. Weight-bear as tolerated left lower extremity. Knee immobilizer until good quad control. She can probably DC that today. Lovenox for DVT prophylaxis. We will not do a dressing change today. Will change dressings tomorrow either with home health if she is discharged or in the hospital. Continue regular diet as ordered. Continue p.o. pain medication as ordered. She does have a walker for use at home. Encourage bedside exercises. Will discuss findings with Dr. Anguiano. I will check in later this afternoon to see if she feels comfortable with being discharged home at that time. Discharge to home with in-home nursing and PT. Case management setting up. Discharge to home either later today or tomorrow morning. Present on Admission?: Yes (2) Acute blood loss anemia: Asymptomatic. Monitor H&H. No need for transfusion at this time. Present on Admission?: No Subjective Patient doing well. Less nauseated today. Tolerating a regular diet but does not have much of an appetite. No significant pain of her left knee. She has been able to control her pain with oral Tylenol. She is going to take some tramadol this morning prior to PT. She has been out of bed in her room but has not had formal physical therapy yet. She has been ambulating with a walker. Denies any lightheadedness or dizziness, chest pain or shortness of breath. Physical Exam 2 Vital Signs (Past 24 Hours): Last Vital Signs Temp 36.5 C 09/11/18 07:03 Pulse 62 09/11/18 07:03 Resp 18 09/11/18 07:03 BP 116/70 09/11/18 07:03 Pulse Ox 98 09/11/18 07:03 Physical Exam: Exam of her left lower extremity reveals a dressing is clean, dry and intact. She is able to independently straight leg raise. Distal neurovascular function is normal. Dorsalis pedis pulses 1+. Distal sensation normal. Brisk capillary refill. No calf tenderness with palpation. Dorsiflexion strength 5/5. Results & Data Laboratory Results 09/11/18 09/11/18 Range/Units 06:28 06:28 WBC 10.95 H (4.8-10.8) K/uL RBC 3.48 L (4.2-5.4) M/uL Hgb 9.6 L (12.0-16.0) g/dL Hct 29.2 L (37-47) % MCV 83.9 (80-100) fL MCH 27.6 (25-34) pg MCHC 32.9 (32-36) g/dL RDW Std Deviation 44.1 (36.4-46.3) fL RDW Coeff of Osvaldo 14.4 (11.5-14.5) % Plt Count 147 (130-400) K/uL MPV 9.0 (7.4-10.4) fL Sodium 140 (136-145) mmol/L Potassium 4.3 (3.5-5.1) mmol/L Chloride 112 H (98-107) mmol/L Carbon Dioxide 23 (21-32) mmol/L Anion Gap 5.0 (3-11) BUN 22 H (7-18) mg/dl Creatinine 0.95 (0.6-1.2) mg/dl Est Cr Clr Drug Dosing 52.1 ml/min Est GFR ( Amer) 67.4 Est GFR (Non-Af Amer) 58.2 BUN/Creatinine Ratio 23.3 H (10-20) Glucose 104 H (70-99) mg/dl Calcium 8.2 L (8.5-10.1) mg/dl
[2018-09-11] MEDS ORDERED: dexAMETHasone 4 MG TAB PO SCH (10:42)
--- NOTE | 2018-09-11 10:57 | Anesthesiology Progress Note ---
Date of Service September 11, 2018 Anesthesia Post Procedure Vital Signs Vital Signs: Temp Pulse Pulse Resp BP Pulse Ox 09/11/18 07:03 36.5 C 62 18 116/70 98 09/11/18 03:45 36.8 C 57 L 16 106/61 95 09/10/18 23:12 36.6 C 67 16 119/66 96 09/10/18 19:05 36.6 C 62 20 125/76 97 09/10/18 15:05 36.7 C 68 20 152/77 H 94 09/10/18 14:20 61 16 138/75 94 09/10/18 13:20 55 L 18 153/83 H 95 09/10/18 12:30 36.4 C L 63 16 143/81 H 96 09/10/18 11:55 36.4 C L 58 L 16 161/80 H 94 09/10/18 11:05 80 20 150/94 H 95 Pain Intensity Left Knee: Pain Intensity: 2 Notes Mental Status: alert / awake / arousable and participated in evaluation Patient Amnestic to Procedure: Yes Nausea / Vomiting: adequately controlled Pain: adequately controlled Airway Patency, RR, SpO2: stable & adequate BP & HR: stable & adequate Hydration State: stable & adequate Neuraxial Anesthesia: was administered and sensory block resolved Anesthetic Complications: no major complications apparent and Pt Satisfied with anesthetic care
[2018-09-11] MEDS: ASCORBIC ACID 500 MG TAB PO SCH (11:19)
--- NOTE | 2018-09-11 18:13 | Progress Note ---
DATE: 09/11/2018 The patient is doing well. She will remain in the hospital until tomorrow to receive further pain control as well as physical therapy. She will be reevaluated in the morning. Her blood pressure is well controlled. She is afebrile. Her vital signs are stable.
[2018-09-11] MEDS: SIMVASTATIN 20 MG TAB PO SCH (21:10)
[2018-09-11] MEDS: LOSARTAN POTASSIUM 50 MG TAB PO SCH (21:10)
[2018-09-12] MEDS: ACETAMINOPHEN 500 MG TAB PO SCH ×2 (06:01→13:26)
[2018-09-12] MEDS: CHECK CLONIDINE PATCH PLACEMENT SCH (07:40)
[2018-09-12] MEDS: ENOXAPARIN INJ 30 MG/0.3 ML SYR SQ SCH (08:58)
[2018-09-12] MEDS: TRAMADOL HCL 50 MG TABLET PO PRN ×2 (09:01→13:25)
[2018-09-12] MEDS: CYCLOSPORINE OP SCH (09:02)
[2018-09-12] MEDS: DOCUSATE SODIUM 100 MG CAP PO SCH (09:02)
[2018-09-12] MEDS: PANTOprazole 40 MG TAB PO SCH (09:03)
[2018-09-12] MEDS: ASCORBIC ACID 500 MG TAB PO SCH (09:03)
[2018-09-12] MEDS: ATENOLOL 25 MG TABLET PO SCH (09:03)
[2018-09-12] MEDS: AZELASTINE 137 MCG NAE SCH (09:04)
--- NOTE | 2018-09-12 11:15 | Discharge Summary ---
Date of Service September 12, 2018 Admission HPI Per Admitting Provider Patient is a pleasant 77-year-old female who is here today for preoperative history and physical. She is scheduled to have an elective left total knee arthroplasty done by Dr. Anguiano at the [facility] on September 10, 2018. She complains of left knee pain that has progressively worsened over the last few months. She states that most of her knee pain is on the inside aspect of the knee. Her pain is increased with activity and weightbearing. She does have decreasing activities of daily living due to pain in her left knee. She has increased pain with range of motion as well as limited motion due to pain in her left knee. She states that she is unable to bend it quite as far as she used to be able to do. She denies any joint effusions currently. Aggravating activities include walking, going up and down steps. She also occasionally gets rest and night pain. She has not needed to use an assistive device but does have to take occasional breaks to rest. Prior treatments include nonsteroidal anti-inflammatory medications, corticosteroid injections and viscosupplementation. She really is not getting any long lasting relief from any of the conservative things that she is trying. Radiology images show tricompartmental arthritis of her left knee. Due to her failure of conservative treatment, she wishes to proceed with elective left total knee arthroplasty. Discharge Data Consultations 09/10/18 11:25 Consult Case Management - Discharge Planning Routine Procedures Performed Operation Date: 09/10/18 07:00 Actual Procedures p Left Total Knee Arthroplasty(Left) - Daniel Anguiano MD Hospital Course (1) Degenerative joint disease of knee: Patient was admitted to the [facility] on September 10, 2018 after undergoing an elective left total knee arthroplasty with Dr. Daniel Anguiano. Her surgery was performed with spinal anesthesia and peripheral nerve block. She was given 2 g of IV Ancef for surgical prophylaxis. She tolerated the procedure well without any intraoperative complications. Postoperative x-rays were taken and showed her surgical changes consistent with a left total knee arthroplasty in neutral alignment. Postoperatively Ancef 1 g every 8 hours was continued for 24 hour postoperative period. On the day of surgery she did have some mild nausea and decreased appetite. Pain medications prescribed included oral Tylenol, oxycodone, tramadol, IV morphine. Her pain was controlled after surgery with oral Tylenol thousand milligrams every 8 hours and tramadol one to 2 tablets every 4 hours as needed for pain. She was allowed out of bed, weightbearing as tolerating left lower extremity with the assistance of a walker and a knee immobilizer her left leg. The knee immobilizer was discontinued on postoperative day 2. Her dressings remained dry while in the hospital and removed and changed on postoperative day 2. She was placed on Lovenox 30 mg twice a day for DVT prophylaxis. This was started on the evening of surgery. Physical therapy and occupational therapy was consult it. She did well out of bed. She is to walker to assist with ambulation. Her appetite improved on postoperative day one and the nausea resolved. She was seen by case management for disposition and requested to go home with in-home health. Referrals were made. She tolerated a regular diet during her inpatient stay. MALICK stockings and AV foot pumps were also used for DVT prophylaxis. Incentive spirometer was ordered. Postoperative day one her labs were checkedAnterior hemoglobin was 9.6 and hematocrit 29.2 consistent with acute blood loss anemia. She was asymptomatic and no transfusions were necessary. On postoperative day 2 she was deemed safe for home. She was discharged to her home in stable condition with plans for home nursing as well as home physical therapy. She will follow up in our office as scheduled on Sunday, September 16, 2018 for an incision check. All questions were answered and discharge instructions were reviewed and provided. Discharge Instructions as per EMR
--- NOTE | 2018-09-12 11:16 | Progress Note ---
DATE: 09/12/2018 SUBJECTIVE: She is resting comfortably in bed. She has not had a bowel movement, but is urinating without difficulty. Tolerating a regular diet. Her pain is under good control. She has done very well with therapy and has ambulated around several times. She is concerned about the appearance of her wound. OBJECTIVE: GENERAL: She is afebrile. VITAL SIGNS: Her vital signs are stable. MUSCULOSKELETAL: Dorsalis pedis is 1+ and she has 5/5 ankle and toe plantar flexion and dorsiflexion strength. She can do an active straight leg raise without a lag. Her knee is fully straightened. The incision demonstrates some pinkish erythema around the mid portion, both medially and laterally and a little bit around towards the back of the leg. There is no significant intraarticular or subcutaneous fluid collection and there is no drainage. IMPRESSION: Left total knee replacement. PLAN: Findings discussed. I think that this is erythema related to inflammation, perhaps icing and perhaps some early bruising going on. I recommend observation. We talked about things to watch out for including severe pain, drainage, swelling, fevers. Discharge instructions are given. She will follow up in the office on Sunday for a wound check. We talked about her medications, pain medicine, Lovenox injections and anti-constipation meds. Wound care instructions are given. She will be discharged with home nursing and home health. Lots of rest, elevation and icing recommended at home. Her blood pressure is well controlled.
[2018-09-12] MEDS ORDERED: CeleBREX 200 MG CAP PO SCH (21:00)
== END 2018-09-12 15:17 | disposition home health service (06) | DRG 470 ==
LOC: ASU 05:03 → 3E 10:48
DX: G47.30 Sleep apnea, unspecified; I10 Essential (primary) hypertension; Z88.5 Allergy status to narcotic agent; Z80.3 Family history of malignant neoplasm of breast; E78.5 Hyperlipidemia, unspecified; M17.12 Unilateral primary osteoarthritis, left knee; H81.09 Meniere's disease, unspecified ear